=== PATIENT | female | born 1980 | race Two or more races ===

== ENCOUNTER 2024-10-31 17:44 | Emergency (ER) | payer MEDICAID ==
[~2024-10-31] VITALS: Ht 162.6 cm; Wt 75.2 kg
--- NOTE | 2024-10-31 18:41 | DVH ---
CHEST RADIOGRAPH Indication: cough Technique: Single frontal view of the chest was obtained COMPARISON: None FINDINGS: Lines and Tubes: None Lungs: Consolidation at the right lung base consistent with pneumonia. Pleura: No effusion. No pneumothorax. Cardiomediastinal contours: Unremarkable Bones: Unremarkable IMPRESSION: Right lower lobe pneumonia
--- NOTE | 2024-10-31 19:16 | ED.PDOC ---
History of Present Illness HPI Comments 44F presents to the ER w/ no prior Hx associated to the c/c of ABN Labs. Pt report son having the flu, then going to [facility] and getting her blood tested for arias informing her to immediately going to an ER because she is positive for D-dimer. Pt notes that she is unable to sleep due to SOB and cough. Denies chills, fever, N/V/D CP or other associated symptom's, modifiers, or recent injuries or sick contact at this time. Chief Complaint: Abnormal LAB's Time Seen by MD: 18:40 Primary Care Provider: MALLORIE Reviewed Notes: Nurses Notes, Medications, Allergies Allergies: Coded Allergies: NO KNOWN ALLERGIES (Unverified , 10/31/24) Information Source: Patient Mode of Arrival: Ambulatory Severity: Moderate Timing: Hours Duration: Since onset, Hours Prehospital treatment: None Past Medical History PAST MEDICAL HISTORY: Denies Surgical History: Denies all surgeries HOME CARE NURSE History: No Pertinent HOME CARE NURSE History Family History Family History: Reviewed,noncontributory to illness, Unknown Social History Smoker: Non-Smoker Alcohol: Denies ETOH Use Drugs: Denies Drug Use Lives In: Home Constitutional: denies: chills, diaphoresis, fatigue, fever, malaise, sweats, weakness, others EENTM: denies: blurred vision, double vision, ear bleeding, ear discharge, ear drainage, ear pain, ear ringing, eye pain, eye redness, hearing loss, mouth pain, mouth swelling, nasal discharge, nose bleeding, nose congestion, nose pain, photophobia, tearing, throat pain, throat swelling, voice changes, others Respiratory: reports: cough, shortness of breath; denies: hemoptysis, orthopnea, SOB at rest, SOB with excertion, stridor, wheezing, others Cardiovascular: denies: chest pain, dizzy spells, diaphoresis, Dyspnea on exertion, edema, irregular heart beat, left arm pain, lightheadedness, palpitations, PND, syncope, others Gastrointestinal: denies: abdomen distended, abdominal pain, blood streaked bowels, constipated, diarrhea, dysphagia, difficulty swallowing, hematemesis, melena, nausea, poor appetite, poor fluid intake, rectal bleeding, rectal pain, vomiting, others Genitourinary: denies: abnormal vagina bleeding, burning, dyspareunia, dysuria, flank pain, frequency, hematuria, incontinence, pain, , vagina discharge, urgency, others Neurological: denies: dizziness, fainting, headache, left sided numbness, left sided weakness, numbness, paresthesia, pre-existing deficit, right sided numbness, right sided weakness, seizure, speech problems, tingling, tremors, we akness, others Musculoskeletal: denies: back pain, gout, joint pain, joint swelling, muscle pain, muscle stiffness, neck pain, others Integumetry: denies: bruises, change in color, change in hair/nails, dryness, laceration, lesions, lumps, rash, wounds, others Allergic/Immunocompromised: denies: Difficulty Healing, Frequent Infections, Hives, Itching, others Hematologic/Lymphatic: denies: anemia, blood clots, easy bleeding, easy bruising, swollen glands, others Endocrine: denies: excessive hunger, excessive sweating, excessive thirst, excessive urination, flushing, intolerance to cold, intolerance to heat, unexplained weight gain, unexplained weight loss, others Psychiatric: denies: anxiety, bipolar disorder, depression, hopeless, panic disorder, schizophrenia, sleepless, suicidal, others All Other Systems: Reviewed and Negative Physical Exam General Appearance: No Apparent Distress, Normal HEENT: Normal ENT Inspection, Pharynx Normal, TMs Normal Neck: Full Range of Motion, Non-Tender, Normal, Normal Inspection Respiratory: Chest Non-Tender, Lungs Clear, No Accessory Muscle Use, No Respiratory Distress, Normal Breath Sounds Cardiovascular: No Edema, No JVD, No Murmur, No Gallop, Normal Peripheral Pulses, Regular Rate/Rhythm Breast Exam: Deferred Gastrointestinal: No Organomegaly, Non Tender, No Pulsatile Mass, Normal Bowel Sounds, Soft Genitalia: Deferred Pelvic: Deferred Rectal: Deferred Extremities: No calf tenderness, Normal capillary refill, Normal inspection, Normal range of motion, Non-tender, No pedal edema Musculoskeletal : Apperance: Normal Neurologic: Alert, document management specialist II-XII nml as Tested, No Motor Deficits, Normal Affect, Normal Mood, No Sensory Deficits Cerebellar Function: Normal Reflexes: Normal Skin: Dry, Normal Color, Warm Lymphatic: No Adenopathy Was a procedure done? Was a procedure done?: No Differential Dx Considerations may include: pe, pneumonia, asthma, bronchitis, sepsis, respiratory failure, viral URI X-Ray, Labs, Meds, VS Vital Signs Date Time Temp Pulse Resp B/P (MAP) Pulse Ox O2 Delivery O2 Flow Rate FiO2 10/31/24 17:55 97.5 86 16 118/81 (93) 97 Lab Test 10/31/24 18:29 Range/Units D-Dimer, Quantitative 1.45 H 0.0-0.49 mg/L FEU Time of 1ST Reevaluation: 19:10 Reevaluation 1ST: Unchanged Patient Education/Counseling: Diagnosis, Treatment, Prognosis, Need For Follow Up Family Education/Counseling: No Family Present Additional Information The following tests were ordered, and results were reviewed by me: Louise, Labs I reviewed and agreed with the following test results read by other providers:LOUISE I discussed treatment and results with medical personnel pt has pneumonia and no PE risk factors. DDi is expected to be elevated in light of the active infection.however, she is not septic and appears well. her VSS are stable the amoxicillin Arias prescribed will not likely help this infection. i will start her on levoquin Departure 1 Departure Time of Disposition: 19:47 Impression: Primary Impression: Pneumonia Disposition: 01 HOME / SELF CARE / HOMELESS Condition: Good e-Prescriptions Albuterol Sulfate (VENTOLIN MDI) 90 Mcg Ih 90 MCG IN Q6HP PRN, #1 INH Prov: MACK MONTES MD 10/31/24 Levofloxacin Hemihydrate (LEVAQUIN 500 MG) 500 Mg Tab 1 TAB PO DAILY, #7 TAB Prov: MACK MONTES MD 10/31/24 Discharged With: Self Critical Care Note Critical Care Time?: No Stability Stability form required: No I personally scribed for MACK MONTES MD ([email or web address]) on 10/31/24 at 19:16. Electronically submitted by Binh Carney ([email or web address]). MACK MONTES MD Oct 31, 2024 19:16
[2024-10-31] MEDS ORDERED: ALBUAER3 IN (19:48)
[2024-10-31] MEDS ORDERED: LEVO500T91 PO (19:48)
[2024-10-31 19:49] VITALS: BP 118/74; TEMP 98.5
[2024-10-31 19:50] VITALS: PULSE 84; RESP 18; O2SAT 98
== END 2024-10-31 20:01 | disposition home or self-care (01) ==
LOC: ER 17:44
DX: J18.9 Pneumonia, unspecified organism (principal)
CPT/HCPCS: 36415; 71045; 85379